=== PATIENT | female | born 1965 | race Caucasian/White ===

== ENCOUNTER 2016-12-20 11:15 | Observation (INO) | payer MEDICAID ==
[~2016-12-20] VITALS: Ht 144.8 cm; Wt 60.5 kg
[~2016-12-20 11:15] MED LIST: ACCUPRIL20TAB PO; ALBUTEROL SULFAT3 M3 IH; ALLEGRA30 MG; ARAVA 20MG TABL20 MG PO; ARAVA20 MG PO; ARTANE 2MG2 MG PO; BUSPAR5 MG PO; CELEBREX 200MG200 MG PO; CIPRO 250MG TA250 MG PO; CLEOCIN HCL300 MG PO; COGENTIN .0.5 MG/TAB PO; DOXYCYCLINE 10100 MG PO; ENBREL25 MG SC; ENBREL50 MG/ML SC; EXCEDRIN1 TAB; HUMALOG100 U/ML SC; HUMALOG100 U/ML SQ; LANTUS100 U/ML SC; LANTUS100 U/ML SQ; LOPRESSOR 225 MG/TAB PO; LORTAB 5/500 501 TAB PO; LUNESTA3 MG PO; MACROBID 1100 MG/CAP PO; NAVANE PO; NORCO 325 MG-51 TAB PO; PRILOSEC 20MG20 MG PO; PROBIOTIC FORMU1 CAP; RISPERDAL 1M1 MG/TAB PO; RT ADVAIR 228 DISKUS IH; SYNTHROID0.137 MG PO; TRICOR145 MG PO; TYLENOL 500MG500 MG PO; WELLBUTRIN XL300 M1 PO; ZOCOR 20MG20 MG PO; ZOFRAN ODT4 MG PO; [UNRECOGNIZED DRUG - CODE] PO; [UNRECOGNIZED DRUG - OTHER] PO
[2016-12-20 12:04] LABS: MEAN CELL VOLUME 81 fl (80.0-100.0); MEAN CORPUSCULAR HGB CONC 33 g/dl (33.0-37.0); MEAN PLATELET VOLUME 10.2 fl (7.4-10.4); PLATELET COUNT 256 K/mm3 (130-400); RED BLOOD COUNT 3.54 M/mm3 (4.10-5.30); REDCELL DISTRIBUTION WIDTH-CV 14.5 % (11.5-14.5); WHITE BLOOD COUNT 15.2 K/mm3 (4.8-10.8)
[2016-12-20 12:06] LABS: ADD PATHOLOGY DIFF REVIEW NO; HEMATOCRIT 28.7 % (37.0-47.0); HEMOGLOBIN 9.5 g/dl (12.5-16.0); MEAN CORPUSCULAR HEMOGLOBIN 27 pg (27.0-31.0)
[2016-12-20 12:15] LABS: ADJUSTED CALCIUM 10.2 mg/dL (8.4-10.2); ALANINE AMINOTRANSFERASE 36 U/L (9-52); ALBUMIN 3.5 gm/dL (3.5-5.0); ALKALINE PHOSPHATASE 95 U/L (50-136); ANION GAP 13 mmol/L (7-16); BILIRUBIN,TOTAL 2.1 mg/dL (0.0-1.0); BLOOD UREA NITROGEN 23 mg/dL (7-17); CALCIUM 9.8 mg/dL (8.4-10.2); CARBON DIOXIDE 23 mmol/L (22-30); CHLORIDE 95 mmol/L (98-107); CREATININE, serum 1.34 mg/dL (0.52-1.25); GLUCOSE 341 mg/dL (74-106); LIPASE 11 U/L (23-300); SODIUM 131 mmol/L (137-145); TOTAL PROTEIN 6.8 gm/dL (6.4-8.2)
[2016-12-20 12:25] LABS: BAND 9 % (0-10); NEUTROPHILS 54 % (42.0-75.2); PLATELET ESTIMATE NORMAL (NORMAL); TOTAL CELLS COUNTED 100
[2016-12-20 12:26] LABS: OVALOCYTES 1+
[2016-12-20 12:27] LABS: TROPONIN-I < 0.012 ng/mL (0.000-0.034)
[2016-12-20 13:21] LABS: ARTERIAL BLD GAS O2 SATURATION 95.9 % (92-100); ARTERIAL BLD GAS TCO2 CT 18.9; ARTERIAL BLOOD GAS BASE EXCESS -6.1 (-2-2); ARTERIAL BLOOD GAS HCO3 17.9 meq/L (22-26); ARTERIAL BLOOD GAS PHT 7.39 C (7.35-7.45); ARTERIAL BLOOD GAS pH 7.39 (7.35-7.45); ATS? YES; OXYHEMOGLOBIN 94.2 %
[2016-12-20] MEDS ORDERED: COGENTIN .0.5 MG/TAB PO (15:15)
[2016-12-20] MEDS ORDERED: ACCUPRIL20TAB PO (15:16)
[2016-12-20] MEDS ORDERED: ENBREL25 MG SC (15:16)
[2016-12-20] MEDS ORDERED: TYLENOL 500MG500 MG PO (15:17)
[2016-12-20] MEDS ORDERED: WELLBUTRIN SR150 M1 PO (15:17)
[2016-12-20] MEDS ORDERED: LUNESTA3 MG PO (15:18)
[2016-12-20] MEDS ORDERED: TRICOR145 MG PO (15:18)
[2016-12-20] MEDS ORDERED: CELEBREX 200MG200 MG PO (15:18)
[2016-12-20] MEDS ORDERED: HUMALOG100 U/ML SQ (15:19)
[2016-12-20] MEDS ORDERED: ARAVA 20MG TABL20 MG PO (15:20)
[2016-12-20] MEDS ORDERED: LANTUS100 U/ML SQ (15:20)
[2016-12-20] MEDS ORDERED: LOPRESSOR 225 MG/TAB PO (15:21)
[2016-12-20] MEDS ORDERED: SYNTHROID0.137 MG PO (15:21)
[2016-12-20] MEDS ORDERED: ZOCOR 20MG20 MG PO (15:22)
[2016-12-20] MEDS ORDERED: PRILOSEC 20MG20 MG PO (15:22)
[2016-12-20] MEDS ORDERED: RISPERDAL 1M1 MG/TAB PO (15:22)
[2016-12-20 16:56] LABS: PH 5 (5-8); SQUAMOUS EPITHELIAL 0-2 /hpf; URINE APPEARANCE Hazy; URINE BACTERIA Rare /hpf; URINE BILIRUBIN Negative (NEGATIVE); URINE BLOOD 2+ (NEGATIVE); URINE COLOR Yellow; URINE GLUCOSE 3+ (NEGATIVE); URINE KETONE 1+ (NEGATIVE); URINE UROBILINOGEN Negative (NEGATIVE); URINE WBC 20-50 /hpf
[2016-12-20 17:59] VITALS: BP 150/49; PULSE 110; TEMP 99.1
[2016-12-20 20:53] VITALS: BP 150/51; PULSE 108; TEMP 99.1
[2016-12-20 23:46] VITALS: BP 1150/55; BP 150/55; PULSE 119; TEMP 98.9
[2016-12-21] VITALS (8 sets, daily range): BP systolic 112–167; BP diastolic 46–64; PULSE 77–120; TEMP 97.1–99.1
[2016-12-21 21:11] LABS: MEAN CELL VOLUME 84 fl (80.0-100.0); MEAN CORPUSCULAR HGB CONC 32 g/dl (33.0-37.0); MEAN PLATELET VOLUME 9.8 fl (7.4-10.4); PLATELET COUNT 225 K/mm3 (130-400); RED BLOOD COUNT 3.19 M/mm3 (4.10-5.30); WHITE BLOOD COUNT 8.5 K/mm3 (4.8-10.8)
[2016-12-21 21:13] LABS: HEMATOCRIT 26.7 % (37.0-47.0); HEMOGLOBIN 8.5 g/dl (12.5-16.0); MEAN CORPUSCULAR HEMOGLOBIN 27 pg (27.0-31.0)
[2016-12-21 21:22] LABS: ADJUSTED CALCIUM 10.1 mg/dL (8.4-10.2); ALBUMIN 2.9 gm/dL (3.5-5.0); CALCIUM 9.2 mg/dL (8.4-10.2); CREATININE, serum 0.7 mg/dL (0.52-1.25); POTASSIUM 4.2 mmol/L (3.4-5.0); TOTAL PROTEIN 6.2 gm/dL (6.4-8.2)
[2016-12-22 04:00] VITALS: BP 153/62; PULSE 88; TEMP 98.3
[2016-12-22 07:33] LABS: MEAN CELL VOLUME 83 fl (80.0-100.0); MEAN CORPUSCULAR HGB CONC 32 g/dl (33.0-37.0); MEAN PLATELET VOLUME 10.3 fl (7.4-10.4); PLATELET COUNT 273 K/mm3 (130-400); RED BLOOD COUNT 3.29 M/mm3 (4.10-5.30); REDCELL DISTRIBUTION WIDTH-CV 14.8 % (11.5-14.5); WHITE BLOOD COUNT 6.5 K/mm3 (4.8-10.8)
[2016-12-22 07:37] VITALS: BP 166/66; PULSE 87; TEMP 98.2
[2016-12-22 07:40] LABS: HEMATOCRIT 27.3 % (37.0-47.0); HEMOGLOBIN 8.6 g/dl (12.5-16.0); MEAN CORPUSCULAR HEMOGLOBIN 26 pg (27.0-31.0)
[2016-12-22 07:43] LABS: CALCIUM 9.4 mg/dL (8.4-10.2); CREATININE, serum 0.67 mg/dL (0.52-1.25); POTASSIUM 4.2 mmol/L (3.4-5.0)
[2016-12-22 12:21] VITALS: BP 177/74; PULSE 89; TEMP 97.5
[2016-12-22] MEDS ORDERED: LEVAQUIN 750MG750 M1 PO (13:55)
[2016-12-22] MEDS ORDERED: ZOFRAN ODT4 MG PO (14:23)
== END 2016-12-22 14:52 | disposition home or self-care (01) ==
LOC: COL.ER 11:15 → MEDICAL 14:52
PROVIDERS: Emergency Medicine; Internal Medicine Cardiovascular Disease
DX: R11.2 Nausea with vomiting, unspecified (principal); M06.9 Rheumatoid arthritis, unspecified; E10.9 Type 1 diabetes mellitus without complications; Z79.4 Long term (current) use of insulin; I10 Essential (primary) hypertension; F29 Unspecified psychosis not due to a substance or known physiological condition; I95.9 Hypotension, unspecified
CPT/HCPCS: 99222-AI; 99223-AI; 99233-AI; G0378; J1815; J1956; J2270; J2405; J2550; J7030; J7509; Q9967

== ENCOUNTER → 2018-01-13 | Outpatient (CLI) | payer MEDICAID ==
[~2018-01-13] MED LIST changes: +LEVAQUIN 750MG750 M1 PO; +WELLBUTRIN SR150 M1 PO
== END ==
LOC: COL.RAD 08:15
DX: R29.818 Other symptoms and signs involving the nervous system (principal); R41.89 Other symptoms and signs involving cognitive functions and awareness
CPT/HCPCS: A9585

== ENCOUNTER 2019-04-07 12:00 | Emergency (ER) | payer MEDICAID ==
[~2019-04-07] VITALS: Ht 144.8 cm; Wt 54.5 kg
[2019-04-07 12:04] VITALS: TEMP 97
[2019-04-07 12:47] LABS: BASO # 0.1 (0.0-0.2); EOS # 0.2 (0.0-0.7); EOS % 2.4 % (0-4.0); GRAN # 5.4 (1.4-6.5); GRAN % 68.9 % (42.2-75.2); HEMOGLOBIN 10.7 g/dl (12.5-16.0); LYMPH # 1.5 (1.2-3.4); LYMPH % 19.4 % (20.0-51.0); MEAN CELL VOLUME 83 fl (80.0-100.0); MEAN CORPUSCULAR HEMOGLOBIN 27 pg (27.0-31.0); MEAN CORPUSCULAR HGB CONC 33 g/dl (33.0-37.0); MEAN PLATELET VOLUME 9.7 fl (7.4-10.4); MONO # 0.6 (0.1-0.6); PLATELET COUNT 277 K/mm3 (130-400); RED BLOOD COUNT 3.91 M/mm3 (4.10-5.30); REDCELL DISTRIBUTION WIDTH-CV 14.6 % (11.5-14.5)
[2019-04-07 12:54] LABS: HEMATOCRIT 32.3 % (37.0-47.0)
[2019-04-07 13:00] LABS: ALBUMIN 3.8 gm/dL (3.5-5.0); BILIRUBIN,TOTAL 0.4 mg/dL (0.0-1.0); CALCIUM 9.6 mg/dL (8.4-10.2); CREATININE, serum 0.9 (0.52-1.25); POTASSIUM 4.5 mmol/L (3.4-5.0); TOTAL PROTEIN 7.3 gm/dL (6.4-8.2)
[2019-04-07] MEDS ORDERED: ZOFRAN ODT4 MG PO (14:28)
[2019-04-07 14:47] LABS: COLLECTION METHOD CLEAN CATCH
[2019-04-07 14:58] LABS: MUCOUS Present /lpf; PH 5 (5-8); SQUAMOUS EPITHELIAL None Seen /hpf; URINE APPEARANCE Clear; URINE BACTERIA Rare /hpf; URINE BILIRUBIN Negative (NEGATIVE); URINE BLOOD Negative (NEGATIVE); URINE COLOR Yellow; URINE GLUCOSE 3+ (NEGATIVE); URINE KETONE Negative (NEGATIVE); URINE LEUKOCYTE ESTERASE Negative (NEGATIVE); URINE NITRATE Positive (NEGATIVE); URINE PROTEIN(semi-quant) Negative (NEGATIVE); URINE RBC 0-2 /hpf; URINE UROBILINOGEN Negative (NEGATIVE)
[2019-04-07 15:11] VITALS: BP 142/77; PULSE 76
== END 2019-04-07 15:13 | disposition home or self-care (01) ==
LOC: COL.ER 12:00
PROVIDERS: Physician Assistant
DX: E10.65 Type 1 diabetes mellitus with hyperglycemia (principal); K80.20 Calculus of gallbladder without cholecystitis without obstruction; E03.9 Hypothyroidism, unspecified; I10 Essential (primary) hypertension
CPT/HCPCS: J2405; J7030

== ENCOUNTER 2020-03-04 22:07 | Emergency (ER) | payer MEDICAID ==
[~2020-03-04] VITALS: Ht 144.8 cm; Wt 59.1 kg
[~2020-03-04 22:07] MED LIST changes: +ALBUTEROL0.83 MG/ML IH; +BENADRYL25 M2 PO; +HUMIRA PEN40 MG/0.4 SQ; +NITROSTAT0.4 MG/TAB SL; +PROAIR HFA0.09 MG/AC IH; +PROTONIX 40MG T40 MG PO; +SYNTHROID0.125 MG/T PO; +TRESIBA100 UNIT/1 SQ
[2020-03-04 22:08] VITALS: TEMP 98.7
[2020-03-04 22:51] LABS: MEAN CELL VOLUME 84 fl (80.0-100.0); MEAN CORPUSCULAR HGB CONC 32 g/dl (33.0-37.0); MEAN PLATELET VOLUME 9.9 fl (7.4-10.4); PLATELET COUNT 250 K/mm3 (130-400); RED BLOOD COUNT 3.55 M/mm3 (4.10-5.30); REDCELL DISTRIBUTION WIDTH-CV 13.9 % (11.5-14.5)
[2020-03-04 22:55] LABS: HEMATOCRIT 29.9 % (37.0-47.0); HEMOGLOBIN 9.7 g/dl (12.5-16.0); MEAN CORPUSCULAR HEMOGLOBIN 27 pg (27.0-31.0)
[2020-03-04 23:05] LABS: ALANINE AMINOTRANSFERASE 10 U/L (4-34); ALBUMIN 3.8 gm/dL (3.5-5.0); ALKALINE PHOSPHATASE 109 U/L (50-136); ANION GAP 9 mmol/L (7-16); AST,SGOT 20 U/L (15-37); BILIRUBIN,TOTAL 0.8 mg/dL (0.0-1.0); BLOOD UREA NITROGEN 13 mg/dL (7-17); CALCIUM 9.2 mg/dL (8.4-10.2); CARBON DIOXIDE 24 mmol/L (22-30); CHLORIDE 98 mmol/L (98-107); CREATININE, serum 0.93 (0.52-1.25); GLUCOSE 235 mg/dL (74-106); LIPASE < 10 U/L (23-300); POTASSIUM 4.1 mmol/L (3.4-5.0); SODIUM 131 mmol/L (137-145)
[2020-03-04 23:12] LABS: ANISOCYTOSIS 2+; BAND 28 % (0-10); LYMPHOCYTE 15 % (20.0-51.0); NEUTROPHILS 53 % (42.0-75.2); PLATELET ESTIMATE NORMAL (NORMAL)
[2020-03-04 23:13] LABS: HYPOCHROMIA 1+; POIKILOCYTOSIS 1+
[2020-03-04 23:16] LABS: C-REACTIVE PROTEIN 26.4 mg/dL (0.0-0.9)
[2020-03-04 23:17] LABS: COLLECTION METHOD CATHETER
[2020-03-04 23:30] LABS: MUCOUS Present /lpf; PH 5 (5-8); SQUAMOUS EPITHELIAL 0-2 /hpf; URINE APPEARANCE Cloudy; URINE BACTERIA Rare /hpf; URINE BILIRUBIN Negative (NEGATIVE); URINE BLOOD 1+ (NEGATIVE); URINE COLOR Yellow; URINE GLUCOSE 3+ (NEGATIVE); URINE KETONE Negative (NEGATIVE); URINE LEUKOCYTE ESTERASE 3+ (NEGATIVE); URINE NITRATE Positive (NEGATIVE); URINE PROTEIN(semi-quant) 2+ (NEGATIVE); URINE UROBILINOGEN Negative (NEGATIVE)
[2020-03-04] MEDS ORDERED: OMNICEF 300MG300 MG PO (23:45)
[2020-03-04] MEDS ORDERED: ZOFRAN ODT4 MG PO (23:45)
[2020-03-05 00:20] VITALS: BP 128/54; PULSE 93
== END 2020-03-05 00:20 | disposition home or self-care (01) ==
LOC: COL.ER 22:07
PROVIDERS: Emergency Medicine
DX: N12 Tubulo-interstitial nephritis, not specified as acute or chronic (principal); R11.2 Nausea with vomiting, unspecified; R51 Headache; I10 Essential (primary) hypertension; E78.5 Hyperlipidemia, unspecified; E10.9 Type 1 diabetes mellitus without complications; F25.9 Schizoaffective disorder, unspecified; Z79.51 Long term (current) use of inhaled steroids; Z79.890 Hormone replacement therapy
CPT/HCPCS: J0696; J1885; J2405; J7040

== ENCOUNTER 2020-08-16 11:11 | Inpatient (IN) | payer MEDICAID ==
[~2020-08-16] VITALS: Ht 144.8 cm; Wt 65.1 kg
[~2020-08-16 11:11] MED LIST changes: +OMNICEF 300MG300 MG PO
[2020-08-16 12:04] LABS: HEMOGLOBIN 11.5 g/dl (12.5-16.0); MEAN CELL VOLUME 89 fl (80.0-100.0); MEAN CORPUSCULAR HEMOGLOBIN 30 pg (27.0-31.0); MEAN CORPUSCULAR HGB CONC 33 g/dl (33.0-37.0); MEAN PLATELET VOLUME 9.1 fl (7.4-10.4); PLATELET COUNT 370 K/mm3 (130-400); RED BLOOD COUNT 3.88 M/mm3 (4.10-5.30); REDCELL DISTRIBUTION WIDTH-CV 14.2 % (11.5-14.5)
[2020-08-16 12:08] LABS: HEMATOCRIT 34.7 % (37.0-47.0)
[2020-08-16 12:09] LABS: BILIRUBIN,TOTAL 0.5 mg/dL (0.0-1.0); C-REACTIVE PROTEIN 8.4 mg/dL (0.0-0.9); CALCIUM 9.6 mg/dL (8.4-10.2); CREATININE, serum 0.7 (0.52-1.25); POTASSIUM 5.3 mmol/L (3.4-5.0); TOTAL PROTEIN 7.1 gm/dL (6.4-8.2)
[2020-08-16 12:25] LABS: BAND 51 % (0-10); LYMPHOCYTE 12 % (20.0-51.0); PLATELET ESTIMATE NORMAL (NORMAL)
[2020-08-16 12:26] LABS: NEUTROPHILS 34 % (42.0-75.2)
[2020-08-16] MEDS ORDERED: ZYRTEC 10MG10 MG PO (14:04)
[2020-08-16] MEDS ORDERED: SINGULAIR 110 MG/TAB PO (14:06)
[2020-08-16] MEDS ORDERED: FLONASE NASAL S16 GM NS (14:07)
[2020-08-16] MEDS ORDERED: LIPITOR 40MG TA40 MG PO (14:09)
[2020-08-16] MEDS ORDERED: SYNTHROID 0.10.15 MG PO (15:06)
[2020-08-16] MEDS ORDERED: IMURAN 50MG TAB50 MG PO (15:06)
[2020-08-16] MEDS ORDERED: ISOPTIN SR180 M1 PO (15:06)
[2020-08-16] MEDS ORDERED: COZAAR 25MG25 MG/TAB PO (15:07)
[2020-08-16] MEDS ORDERED: 00186-0372-20 IH (15:18)
[2020-08-16] MEDS ORDERED: MACROBID 1100 MG/CAP PO (15:36)
--- NOTE | 2020-08-16 17:30 | NUR ---
Pt arrived to floor at this time from ER with ER nurse. transferred over to bed with assistance of 2. Resting on side d/t pain in L side that is 8/10. Denies other needs, will get meds and implement plan of care.
[2020-08-16 17:37] VITALS: BP 152/51; PULSE 93; TEMP 99.2
--- NOTE | 2020-08-16 18:39 | NUR ---
Pt continues to lay on R side d/t pain in L side, discussed need to start meds to help with getting stool out per doctors recommendations and need to minimize narcotic use as it will slow down bowels further. Pt agreeable and verbalizes understanding. IVF to RW. Will give bedside shift report to nightshift nurse who will resume care.
--- NOTE | 2020-08-16 20:11 | NUR ---
Patient resting in bed drinking her golytely. IV fluids infusing. Patient has complaints of pain on the left side of her abdomen, but states it is tolerable. Patient has not had a bowel movement yet. Instructed patient to call if she feels the urge to go to the bathroom.
[2020-08-16 21:01] VITALS: BP 181/70; PULSE 93; TEMP 98.1
--- NOTE | 2020-08-16 22:06 | NUR ---
Patient resting in bed. Still has not had a bowel movement. Encouraging patient to keep drinking the Golytely but patient is tired and falling asleep. Call light is within reach.
--- NOTE | 2020-08-16 22:24 | NUR ---
Patient's blood pressure was 181/70. Took it again and got about the same thing. Called hospitalist and got an order for lebatalol.
[2020-08-16 23:26] VITALS: BP 172/66; PULSE 85; TEMP 98.4
[2020-08-17 00:57] VITALS: BP 159/65
--- NOTE | 2020-08-17 02:09 | NUR ---
PAtient got up to use the bathroom and had a large bowel movement.
--- NOTE | 2020-08-17 03:30 | NUR ---
Patient had another bowel movement.
[2020-08-17 03:35] VITALS: BP 149/63; PULSE 93; TEMP 98.6
[2020-08-17 07:26] VITALS: BP 172/65; PULSE 84; TEMP 98.9
[2020-08-17 07:54] LABS: BASO # 0.1 (0.0-0.2); BASO % 0.4 % (0.0-2.0); EOS # 0.2 (0.0-0.7); EOS % 1.7 % (0-4.0); GRAN # 10.1 (1.4-6.5); GRAN % 83.2 % (42.2-75.2); LYMPH % 7.8 % (20.0-51.0); MEAN CELL VOLUME 89 fl (80.0-100.0); MEAN CORPUSCULAR HGB CONC 33 g/dl (33.0-37.0); MEAN PLATELET VOLUME 8.8 fl (7.4-10.4); MONO # 0.8 (0.1-0.6); MONO % 6.6 % (1.7-9.3); PLATELET COUNT 299 K/mm3 (130-400); RED BLOOD COUNT 3.42 M/mm3 (4.10-5.30); REDCELL DISTRIBUTION WIDTH-CV 14.5 % (11.5-14.5)
[2020-08-17 07:57] LABS: HEMATOCRIT 30.3 % (37.0-47.0); HEMOGLOBIN 9.9 g/dl (12.5-16.0); MEAN CORPUSCULAR HEMOGLOBIN 29 pg (27.0-31.0)
[2020-08-17 08:04] LABS: CALCIUM 8.8 mg/dL (8.4-10.2); CREATININE, serum 0.58 (0.52-1.25); POTASSIUM 4.8 mmol/L (3.4-5.0)
--- NOTE | 2020-08-17 09:45 | NUR ---
Patient alert and oriented, answers questions appropriately. Abdomen soft, non tender,non distended. Bowel sounds hyperactive x4 quads. +Flatus. +Bowel movement. No c/o at this time.
--- NOTE | 2020-08-17 11:14 | NUR ---
SW met with the patient to discuss discharge plan. The patient lives alone in [place]. Her son, Reuben (ph#[phone]), and mother, Ambreen (ph#[phone]), also live in [place]. She reports needing occasional assistance with ADLs and does not have any DME. She states that her son helps her with her ADLs, if needed. The patient's PCP is Dr. Edgardo Jacobs and she receives her medications from [facility] in [place]. She reports no difficulties obtaining her meds. The patient does not have a DPOA-HC, but she was interested in obtaining a form. SW provided. The patient states that she is not and that she has two children: Reuben and Rina. Rina lives in [place]. The patient plans to return home upon discharge. SW then contacted and reviewed the d/c plan with the patient's son, Reuben. Reuben reports that him and the patient's mother help the patient quite a bit. They cook her meals and clean the house and try and check in on the patient every day. He had no concerns about the patient returning home upon discharge. SW to follow as needed.
[2020-08-17 11:26] VITALS: BP 184/71; PULSE 101; TEMP 98.6
--- NOTE | 2020-08-17 13:34 | NUR ---
First visit from the parent educator. No needs right now.
--- NOTE | 2020-08-17 15:45 | NUR ---
Patient arrived to unit per PACU at 1525. Abdomen soft, non tender, non distended. Bowel sounds hypoactive x4 quads. Lap sites to abdomen with edges well approximated, no redness or drainage noted. CARMEN to LLQ with scant amount bloody drainage noted. Chahal catheter in place and draining clear yellow urine. ERAS protocol reviewed with patient, teaching included leg exercises, CDB and bedrest until tomorrow a.m, verbalized understanding.
--- NOTE | 2020-08-17 16:15 | NUR ---
Upon entering room, patient dressed in regular clothes. Reviewed with patient she is to remain on bedrest until morning, verbalized understanding.
[2020-08-17 16:16] VITALS: BP 137/55; PULSE 88; TEMP 98.2
[2020-08-17 21:12] VITALS: BP 136/63; PULSE 97; TEMP 98.5
--- NOTE | 2020-08-17 21:30 | NUR ---
Patient resting in bed. Complaints of some discomfort in her abdomen. Patient tolerating the bland diet. Held her mirilax and senekot due to her diarrhea throughout the day. Patient has no other needs at this time. Call light is in reach.
--- NOTE | 2020-08-18 00:30 | NUR ---
Patient refused her insulin stating she would not need it. Encouraged patient to take it and told her her blood sugar was 162, but she stated she did not think she needed it.
[2020-08-18 00:48] VITALS: BP 153/55; PULSE 85; TEMP 98.5
[2020-08-18 04:33] VITALS: BP 162/55; PULSE 93; TEMP 97.9
--- NOTE | 2020-08-18 05:14 | NUR ---
Patient's IV infiltrated. New IV in Left forearm started by housekeeping staff. Fluids running at 60 ml/hr.
[2020-08-18 07:05] VITALS: BP 161/44; PULSE 89; TEMP 98.5
[2020-08-18 07:10] LABS: BASO # 0.1 (0.0-0.2); BASO % 0.5 % (0.0-2.0); EOS # 0.3 (0.0-0.7); EOS % 2.9 % (0-4.0); GRAN # 7.6 (1.4-6.5); GRAN % 79.9 % (42.2-75.2); LYMPH # 0.9 (1.2-3.4); LYMPH % 9.4 % (20.0-51.0); MEAN CELL VOLUME 90 fl (80.0-100.0); MEAN CORPUSCULAR HGB CONC 33 g/dl (33.0-37.0); MEAN PLATELET VOLUME 9.5 fl (7.4-10.4); MONO # 0.7 (0.1-0.6); MONO % 7.1 % (1.7-9.3); PLATELET COUNT 295 K/mm3 (130-400); RED BLOOD COUNT 3.29 M/mm3 (4.10-5.30); REDCELL DISTRIBUTION WIDTH-CV 14.3 % (11.5-14.5)
[2020-08-18 07:20] LABS: HEMATOCRIT 29.5 % (37.0-47.0); HEMOGLOBIN 9.7 g/dl (12.5-16.0); MEAN CORPUSCULAR HEMOGLOBIN 29 pg (27.0-31.0)
[2020-08-18 07:28] LABS: CALCIUM 8.9 mg/dL (8.4-10.2); CREATININE, serum 0.6 (0.52-1.25); POTASSIUM 4.3 mmol/L (3.4-5.0)
[2020-08-18] MEDS ORDERED: MACROBID 1100 MG/CAP PO ×2 (09:45)
[2020-08-18] MEDS ORDERED: MIRALAX238G PO (09:46)
[2020-08-18] MEDS ORDERED: FLAGYL500 MG PO (09:47)
[2020-08-18] MEDS ORDERED: CIPRO 500MG TA500 MG PO (09:47)
--- NOTE | 2020-08-18 11:27 | NUR ---
Patient alert and oriented, answers questions appropriately. See assessment. Abdomen soft, non tender, non distended. Bowel sounds active x4 quads. +Flatus. +Bowel movement. No c/o at this time.
--- NOTE | 2020-08-18 16:34 | NUR ---
Discharge instructions reviewed with patient, verbalized understanding. Discharged via wheelchair to auto/home with family at 1615.
== END 2020-08-18 16:15 | disposition home or self-care (01) | DRG 389 ==
LOC: COL.ER 11:11 → SURG 14:00
PROVIDERS: Emergency Medicine; Physician Assistant; ADMIT Internal Medicine
DX: K56.600 Partial intestinal obstruction, unspecified as to cause (principal); E87.1 Hypo-osmolality and hyponatremia; E87.6 Hypokalemia; K52.9 Noninfective gastroenteritis and colitis, unspecified; K59.00 Constipation, unspecified; E78.5 Hyperlipidemia, unspecified; M06.9 Rheumatoid arthritis, unspecified; E03.9 Hypothyroidism, unspecified; E11.9 Type 2 diabetes mellitus without complications; K80.20 Calculus of gallbladder without cholecystitis without obstruction; E87.5 Hyperkalemia; J45.909 Unspecified asthma, uncomplicated; F25.1 Schizoaffective disorder, depressive type; K21.9 Gastro-esophageal reflux disease without esophagitis; Z79.4 Long term (current) use of insulin
CPT/HCPCS: 99223-AI; 99232-AI; 99239; J0744; J1650; J1815; J2212; J2270; J2405; J7030; J7500

== ENCOUNTER 2020-09-30 12:16 | Emergency (ER) | payer MEDICAID ==
[~2020-09-30] VITALS: Ht 147.3 cm; Wt 50.0 kg
[~2020-09-30 12:16] MED LIST changes: +00186-0372-20 IH; +CIPRO 500MG TA500 MG PO; +COZAAR 25MG25 MG/TAB PO; +FLAGYL500 MG PO; +FLONASE NASAL S16 GM NS; +IMURAN 50MG TAB50 MG PO; +ISOPTIN SR180 M1 PO; +LIPITOR 40MG TA40 MG PO; +MIRALAX238G PO; +SINGULAIR 110 MG/TAB PO; +SYNTHROID 0.10.15 MG PO; +ZYRTEC 10MG10 MG PO
[2020-09-30 12:27] VITALS: TEMP 97.4
[2020-09-30] MEDS ORDERED: TRESIBA FL100 UNIT/1 SQ (12:38)
[2020-09-30 13:00] LABS: BASO % 0.3 % (0.0-2.0); EOS # 0.1 (0.0-0.7); EOS % 1.2 % (0-4.0); GRAN # 8.5 (1.4-6.5); GRAN % 74.4 % (42.2-75.2); HEMOGLOBIN 12.3 g/dl (12.5-16.0); LYMPH # 1.8 (1.2-3.4); LYMPH % 15.4 % (20.0-51.0); MEAN CELL VOLUME 86 fl (80.0-100.0); MEAN CORPUSCULAR HEMOGLOBIN 30 pg (27.0-31.0); MEAN CORPUSCULAR HGB CONC 35 g/dl (33.0-37.0); MEAN PLATELET VOLUME 8.5 fl (7.4-10.4); MONO # 0.9 (0.1-0.6); MONO % 8.2 % (1.7-9.3); PLATELET COUNT 355 K/mm3 (130-400); RED BLOOD COUNT 4.14 M/mm3 (4.10-5.30); REDCELL DISTRIBUTION WIDTH-CV 13.1 % (11.5-14.5)
[2020-09-30 13:07] LABS: HEMATOCRIT 35.7 % (37.0-47.0)
[2020-09-30 13:08] LABS: COLLECTION METHOD CLEAN CATCH
[2020-09-30 13:09] LABS: ALBUMIN 4.4 gm/dL (3.5-5.0); BILIRUBIN,TOTAL 0.3 mg/dL (0.0-1.0); C-REACTIVE PROTEIN 0.9 mg/dL (0.0-0.9); CALCIUM 9.8 mg/dL (8.4-10.2); CREATININE, serum 0.71 (0.52-1.25); POTASSIUM 4.3 mmol/L (3.4-5.0); TOTAL PROTEIN 7.4 gm/dL (6.4-8.2)
[2020-09-30 13:21] LABS: PH 5 (5-8); SQUAMOUS EPITHELIAL None Seen /hpf; URINE APPEARANCE Clear; URINE BACTERIA Rare /hpf; URINE BILIRUBIN Negative (NEGATIVE); URINE BLOOD Negative (NEGATIVE); URINE COLOR Straw; URINE GLUCOSE Negative (NEGATIVE); URINE KETONE Negative (NEGATIVE); URINE LEUKOCYTE ESTERASE Negative (NEGATIVE); URINE NITRATE Negative (NEGATIVE); URINE PROTEIN(semi-quant) Negative (NEGATIVE); URINE RBC 0-2 /hpf; URINE UROBILINOGEN Negative (NEGATIVE)
[2020-09-30 16:02] VITALS: BP 140/56; PULSE 79
== END 2020-09-30 16:00 | disposition home or self-care (01) ==
LOC: COL.ER 12:16
PROVIDERS: Nurse Practitioner
DX: E11.649 Type 2 diabetes mellitus with hypoglycemia without coma (principal); F32.9 Major depressive disorder, single episode, unspecified; Z79.4 Long term (current) use of insulin; Z88.2 Allergy status to sulfonamides; Z88.6 Allergy status to analgesic agent; Z88.0 Allergy status to penicillin; Z88.1 Allergy status to other antibiotic agents; Z88.8 Allergy status to other drugs, medicaments and biological substances; Z79.51 Long term (current) use of inhaled steroids
CPT/HCPCS: J2405; J7030

== ENCOUNTER 2020-10-13 09:50 | Emergency (ER) | payer MEDICAID ==
[~2020-10-13] VITALS: Ht 147.3 cm; Wt 56.8 kg
[~2020-10-13 09:50] MED LIST changes: +TRESIBA FL100 UNIT/1 SQ
[2020-10-13 12:03] VITALS: BP 150/82; PULSE 93; TEMP 97.8
== END 2020-10-13 12:03 | disposition home or self-care (01) ==
LOC: COL.ER 09:50
DX: S60.051A Contusion of right little finger without damage to nail, initial encounter (principal); S09.90XA Unspecified injury of head, initial encounter; M54.2 Cervicalgia; Z88.0 Allergy status to penicillin; Z88.1 Allergy status to other antibiotic agents; Z88.2 Allergy status to sulfonamides; Z88.5 Allergy status to narcotic agent; Z88.8 Allergy status to other drugs, medicaments and biological substances; Z91.040 Latex allergy status; Z91.041 Radiographic dye allergy status; Z79.4 Long term (current) use of insulin; Z79.51 Long term (current) use of inhaled steroids; Z79.890 Hormone replacement therapy; W01.10XA Fall on same level from slipping, tripping and stumbling with subsequent striking against unspecified object, initial encounter; Y92.192 Bathroom in other specified residential institution as the place of occurrence of the external cause

== ENCOUNTER → 2020-12-11 | Outpatient (CLI) | payer MEDICAID ==
[~2020-12-11] MED LIST changes: +AL-MAG HYDROX-S30 ML PO; +BACITRACIN TOPIC1 TU TOP; +BD POSIFLUSH SF10 ML IV; +CEPHALEXIN500 M1 PO; +CILOXAN 5 ML5 ML OP; +COLACE 100100 MG/CAP PO; +ELIQUIS 5MG PO; +LEVEMIR100 U/ML SQ; +MELATIN 3 MG-11 TAB PO; +MONODOX100 PO; +NOVLOG SQ; +NOVOLOG 100U100 U/M1 SQ; +SENNA-LAX8.6 MG PO; +ZOVIRAX INJ V1000 MG IV
== END ==
LOC: MC.RAD 08:00
DX: N64.89 Other specified disorders of breast (principal)

== ENCOUNTER 2021-01-25 13:27 | Emergency (ER) | payer MEDICAID ==
[~2021-01-25] VITALS: Ht 147.3 cm; Wt 81.4 kg
[~2021-01-25 13:27] MED LIST changes: -AL-MAG HYDROX-S30 ML PO; -BACITRACIN TOPIC1 TU TOP; -BD POSIFLUSH SF10 ML IV; -CEPHALEXIN500 M1 PO; -CILOXAN 5 ML5 ML OP; -COLACE 100100 MG/CAP PO; -ELIQUIS 5MG PO; -LEVEMIR100 U/ML SQ; -MELATIN 3 MG-11 TAB PO; -MONODOX100 PO; -NOVLOG SQ; -NOVOLOG 100U100 U/M1 SQ; -SENNA-LAX8.6 MG PO; -ZOVIRAX INJ V1000 MG IV
[2021-01-25 14:29] LABS: BASO % 0.4 % (0.0-2.0); EOS % 0.4 % (0-4.0); GRAN # 7.1 (1.4-6.5); GRAN % 83.3 % (42.2-75.2); LYMPH # 0.4 (1.2-3.4); LYMPH % 5.1 % (20.0-51.0); MEAN CELL VOLUME 87 fl (80.0-100.0); MEAN CORPUSCULAR HEMOGLOBIN 29 pg (27.0-31.0); MEAN CORPUSCULAR HGB CONC 34 g/dl (33.0-37.0); MEAN PLATELET VOLUME 8.8 fl (7.4-10.4); MONO # 0.9 (0.1-0.6); MONO % 10.6 % (1.7-9.3); PLATELET COUNT 260 K/mm3 (130-400); RED BLOOD COUNT 4.11 M/mm3 (4.10-5.30); REDCELL DISTRIBUTION WIDTH-CV 12.5 % (11.5-14.5)
[2021-01-25 14:30] LABS: HEMATOCRIT 35.8 % (37.0-47.0)
[2021-01-25 14:40] LABS: PROTHROMBIN TIME 11.1 SECONDS (9.7-12.8)
[2021-01-25 14:47] LABS: C-REACTIVE PROTEIN 2.8 mg/dL (0.0-0.9); LIPASE 21 U/L (23-300)
[2021-01-25 15:02] LABS: COLLECTION METHOD CATHETER
[2021-01-25 15:06] LABS: ALANINE AMINOTRANSFERASE 26 U/L (4-34); ALBUMIN 4.6 gm/dL (3.5-5.0); ALKALINE PHOSPHATASE 113 U/L (50-136); ANION GAP 7 mmol/L (7-16); AST,SGOT 27 U/L (15-37); BILIRUBIN,TOTAL 0.6 mg/dL (0.0-1.0); BLOOD UREA NITROGEN 14 mg/dL (7-17); CALCIUM 10.1 mg/dL (8.4-10.2); CARBON DIOXIDE 28 mmol/L (22-30); CHLORIDE 93 mmol/L (98-107); CREATININE, serum 0.71 (0.52-1.25); GLUCOSE 209 mg/dL (74-106); POTASSIUM 4.7 mmol/L (3.4-5.0); SODIUM 128 mmol/L (137-145)
[2021-01-25 15:18] LABS: PH 7 (5-8); SQUAMOUS EPITHELIAL None Seen /hpf; URINE APPEARANCE Clear; URINE BACTERIA None Seen /hpf; URINE BILIRUBIN Negative (NEGATIVE); URINE BLOOD 1+ (NEGATIVE); URINE COLOR Yellow; URINE GLUCOSE 1+ (NEGATIVE); URINE KETONE Negative (NEGATIVE); URINE LEUKOCYTE ESTERASE Negative (NEGATIVE); URINE NITRATE Negative (NEGATIVE); URINE PROTEIN(semi-quant) 1+ (NEGATIVE); URINE UROBILINOGEN Negative (NEGATIVE)
[2021-01-25 15:18] LABS: TROPONIN-I < 0.012 ng/mL (0.000-0.035)
[2021-01-25 17:55] LABS: GLUCOSE,CSF 94 mg/dL (40-70)
[2021-01-25 20:14] LABS: CSF APPEARANCE CLEAR; CSF COLOR COLORLESS; CSF MONONUCLEAR 100 % (70-100); CSF POLYMORPHONUCLEAR 0 % (0-6); CSF RBC 0 /mm3 (0-0)
[2021-01-25 20:59] VITALS: BP 171/79; PULSE 116; TEMP 101.1
--- NOTE | 2021-01-29 11:26 | NUR ---
This RN faxed varicella zoster virus results to ADOLPH Summers in the infection control department at [facility] at this time. Fax results as sent.
[2021-01-29 11:38] LABS: HSV 2 DNA PCR QUAL Not Detected (())
== END 2021-01-25 21:00 | disposition short-term general hospital (02) ==
LOC: COL.ER 13:27
PROVIDERS: Emergency Medicine; Nurse Practitioner
DX: B02.0 Zoster encephalitis (principal); N39.0 Urinary tract infection, site not specified; E11.9 Type 2 diabetes mellitus without complications; F03.90 Unspecified dementia, unspecified severity, without behavioral disturbance, psychotic disturbance, mood disturbance, and anxiety; F32.9 Major depressive disorder, single episode, unspecified; I10 Essential (primary) hypertension; E78.5 Hyperlipidemia, unspecified; E03.9 Hypothyroidism, unspecified; J45.909 Unspecified asthma, uncomplicated; Z20.822 Contact with and (suspected) exposure to COVID-19; Z88.0 Allergy status to penicillin; Z88.1 Allergy status to other antibiotic agents; Z79.4 Long term (current) use of insulin; Z79.899 Other long term (current) drug therapy; Z79.51 Long term (current) use of inhaled steroids; Z79.890 Hormone replacement therapy
CPT/HCPCS: J0133; J0290; J0696; J1200; J2405; J2930; J3010; J3370; J7030; J7040; J7050

== ENCOUNTER 2021-02-02 | Emergency (ER) | payer MEDICAID ==
[~2021-02-02] VITALS: Ht 144.8 cm; Wt 62.7 kg
[2021-02-02 02:31] LABS: COLLECTION METHOD CATHETER
[2021-02-02 02:39] LABS: PH 6 (5-8); SQUAMOUS EPITHELIAL None Seen /hpf; URINE APPEARANCE Clear; URINE BACTERIA None Seen /hpf; URINE BILIRUBIN Negative (NEGATIVE); URINE BLOOD Negative (NEGATIVE); URINE COLOR Straw; URINE GLUCOSE 2+ (NEGATIVE); URINE KETONE Negative (NEGATIVE); URINE LEUKOCYTE ESTERASE Negative (NEGATIVE); URINE NITRATE Negative (NEGATIVE); URINE PROTEIN(semi-quant) Negative (NEGATIVE); URINE RBC 0-2 /hpf; URINE UROBILINOGEN Negative (NEGATIVE); URINE WBC 0-2 /hpf
[2021-02-02 02:47] LABS: ALBUMIN 3.5 gm/dL (3.5-5.0); BILIRUBIN,TOTAL 0.4 mg/dL (0.0-1.0); CREATININE, serum 0.68 (0.52-1.25); POTASSIUM 4.1 mmol/L (3.4-5.0); TOTAL PROTEIN 6.8 gm/dL (6.4-8.2)
[2021-02-02 02:54] LABS: BASO % 0.6 % (0.0-2.0); EOS # 0.3 (0.0-0.7); EOS % 4.2 % (0-4.0); GRAN # 4.3 (1.4-6.5); GRAN % 61.1 % (42.2-75.2); LYMPH # 1.6 (1.2-3.4); LYMPH % 22.7 % (20.0-51.0); MEAN CELL VOLUME 89 fl (80.0-100.0); MEAN CORPUSCULAR HGB CONC 33 g/dl (33.0-37.0); MEAN PLATELET VOLUME 8.7 fl (7.4-10.4); MONO # 0.8 (0.1-0.6); MONO % 11.1 % (1.7-9.3); PLATELET COUNT 335 K/mm3 (130-400); RED BLOOD COUNT 3.06 M/mm3 (4.10-5.30); REDCELL DISTRIBUTION WIDTH-CV 12.7 % (11.5-14.5)
[2021-02-02 02:57] LABS: HEMATOCRIT 27.1 % (37.0-47.0); HEMOGLOBIN 8.9 g/dl (12.5-16.0); MEAN CORPUSCULAR HEMOGLOBIN 29 pg (27.0-31.0)
[2021-02-02] MEDS ORDERED: SENNA-LAX8.6 MG PO (05:03)
[2021-02-02] MEDS ORDERED: COLACE 100100 MG/CAP PO (05:03)
[2021-02-02] MEDS ORDERED: ZOFRAN ODT4 MG PO (05:03)
[2021-02-02] MEDS ORDERED: CEPHALEXIN500 M1 PO (05:03)
[2021-02-02 05:40] VITALS: BP 188/78; TEMP 98.9
[2021-02-02 06:45] VITALS: PULSE 99
--- NOTE | 2021-02-02 09:52 | NUR ---
ironworker machine operator was contacted by Kerrie social service agency director at Dr Maday Martinez's office (primary care provider). Kerrie met with patient and family in their parking lot this morning after patient's emergency room visit. Patient and family want to be referred to rehab. Patient is not a good candidate for a group home facility due to young age and [facility] insurance. Worker gave a referral to [facility] and Kerrie will refer to [facility] in [place].
== END 2021-02-02 06:45 | disposition home or self-care (01) ==
LOC: COL.ER
PROVIDERS: Emergency Medicine
DX: R14.0 Abdominal distension (gaseous) (principal); K59.00 Constipation, unspecified; R60.0 Localized edema; R05 Cough; I80.8 Phlebitis and thrombophlebitis of other sites; J44.9 Chronic obstructive pulmonary disease, unspecified; Z88.6 Allergy status to analgesic agent; Z88.1 Allergy status to other antibiotic agents; Z79.51 Long term (current) use of inhaled steroids; Z88.2 Allergy status to sulfonamides
CPT/HCPCS: J1200; J2930; Q9967

== ENCOUNTER 2021-02-02 16:40 | Inpatient (IN) | payer MEDICAID ==
[~2021-02-02] VITALS: Ht 144.8 cm; Wt 63.3 kg
[~2021-02-02 16:40] MED LIST changes: +CEPHALEXIN500 M1 PO; +COLACE 100100 MG/CAP PO; +SENNA-LAX8.6 MG PO
[2021-02-02 17:42] VITALS: BP 169/76; PULSE 102; TEMP 98.6
[2021-02-02 21:32] VITALS: BP 150/45; PULSE 105; TEMP 97.8
[2021-02-02 23:32] VITALS: BP 149/60; PULSE 95; TEMP 98.6
--- NOTE | 2021-02-03 06:00 | NUR ---
PT SLEPT MAJORITY OF THE NIGHT,PT DRIED AND CHANGED, PT REFUSED 0400 VITALS AND 2100 HEPARIN. PT CONTINUES TO DENY PAIN, N/V/D. PT REMAINED AFEBRILE OVER NIGHT. PT EXPRESSES NO ADDITIONAL NEEDS AT THIS TIME. CALL LIGHT WITHIN REACH.
[2021-02-03 06:51] LABS: BASO % 0.2 % (0.0-2.0); EOS % 0.3 % (0-4.0); GRAN # 6.9 (1.4-6.5); GRAN % 70.9 % (42.2-75.2); LYMPH # 1.7 (1.2-3.4); LYMPH % 17.5 % (20.0-51.0); MEAN CELL VOLUME 87 fl (80.0-100.0); MEAN CORPUSCULAR HGB CONC 34 g/dl (33.0-37.0); MONO % 10.7 % (1.7-9.3); PLATELET COUNT 371 K/mm3 (130-400); REDCELL DISTRIBUTION WIDTH-CV 12.7 % (11.5-14.5)
[2021-02-03 06:58] LABS: HEMATOCRIT 25.3 % (37.0-47.0); HEMOGLOBIN 8.5 g/dl (12.5-16.0); MEAN CORPUSCULAR HEMOGLOBIN 29 pg (27.0-31.0)
[2021-02-03 07:13] LABS: CALCIUM 8.9 mg/dL (8.4-10.2); CREATININE, serum 0.85 (0.52-1.25); POTASSIUM 4.4 mmol/L (3.4-5.0)
[2021-02-03 08:06] VITALS: BP 157/57; PULSE 91; TEMP 99
--- NOTE | 2021-02-03 09:45 | NUR ---
PER PROVIDER, OK GIVEN TO USE PICC LINE IN LEFT UPPER ARM.
--- NOTE | 2021-02-03 10:05 | NUR ---
Discharge Plan : Home with Son. Sw met with the pt who stated her preference to return home once medically stable. The pt lives at home with her son, Reuben (ph# [phone]). Person to call to update is Ambreen Og (ph#[phone]). Pt is independent on ADLs and has a Glucometer. Pt PCP is Juan Sierra and she uses [facility] pharmacy in [place], [place]. Pt sometimes struggles to pay for medications. Pt has used HH services in the past, and if needed she would like to use them again. Pt does not recall the name of the company. Pt does not have DPOA- HC and was offered the paperwork. Pt informed Sw that she would like to call her son first to make sure he is okay being her DPAO. Sw will attempt again tomorrow. No other concerns stated at this time. Sw to await further recommendations and follow up as needed.
[2021-02-03 12:00] VITALS: BP 145/43; PULSE 90; TEMP 98.5
[2021-02-03 16:04] VITALS: BP 130/46; PULSE 92; TEMP 98.4
[2021-02-03 20:48] VITALS: BP 141/89; PULSE 93; TEMP 98.7
[2021-02-03 23:42] VITALS: BP 140/84; PULSE 88; TEMP 98
[2021-02-03 23:45] VITALS: BP 147/55; PULSE 96; TEMP 98.6
[2021-02-04 03:37] VITALS: BP 141/54; PULSE 76; TEMP 98.5
--- NOTE | 2021-02-04 05:54 | NUR ---
PT SLEPT MAJORITY OF THE NIGHT,2ND BAG OF ANTIBIOTICS COMPLETED INFUSING AT APPROXIMATELY 0400 VIA PICC LINE, PT IS TOLERATING INFUSION WELL AND REPORTS GENERAL DISCOMFORT AROUND PICC. LEFT UPPER ARM WHERE PICC IS REMAINS MINIMALLY SWOLLEN, NOT REDDENED, NO DRAINAGE NOTED. PT ADMINISTERED INSULIN ORDERED. PT HAS SNACK AT BED SIDE, PT WAS ASSISTED WITH A SHOWER AND PERSONAL HYGIENE, DURING THAT TIME THIS NURSE REALIZED CHAFFING AND REDNESS NEAR PERINEAL FOLDS, BARRIER CREAM APPLIED. THIS NURSE WAS ABLE TO TALK TO PT'S SON VICKY AND UPDATE HIM ON HER POC. PT EXPRESSES NO ADDITIONAL NEEDS AT THIS TIME. CALL LIGHT WITHIN REACH.
[2021-02-04 08:08] VITALS: BP 140/48; PULSE 93; TEMP 98.3
[2021-02-04 08:44] LABS: BASO % 0.5 % (0.0-2.0); EOS # 0.2 (0.0-0.7); EOS % 2.5 % (0-4.0); GRAN % 65.1 % (42.2-75.2); LYMPH # 1.5 (1.2-3.4); LYMPH % 19.5 % (20.0-51.0); MEAN CELL VOLUME 87 fl (80.0-100.0); MEAN CORPUSCULAR HGB CONC 34 g/dl (33.0-37.0); MEAN PLATELET VOLUME 8.9 fl (7.4-10.4); MONO # 0.9 (0.1-0.6); PLATELET COUNT 356 K/mm3 (130-400); RED BLOOD COUNT 2.74 M/mm3 (4.10-5.30)
[2021-02-04 08:45] LABS: HEMATOCRIT 23.8 % (37.0-47.0); HEMOGLOBIN 8.1 g/dl (12.5-16.0); MEAN CORPUSCULAR HEMOGLOBIN 30 pg (27.0-31.0)
[2021-02-04 08:58] LABS: CALCIUM 8.5 mg/dL (8.4-10.2); CREATININE, serum 0.72 (0.52-1.25); POTASSIUM 3.9 mmol/L (3.4-5.0)
[2021-02-04 12:00] VITALS: BP 142/52; PULSE 92; TEMP 98.6
[2021-02-04 16:09] VITALS: BP 122/50; PULSE 90; TEMP 98.4
[2021-02-04 21:02] VITALS: BP 106/55; PULSE 94; TEMP 98.5
[2021-02-05] VITALS (7 sets, daily range): BP systolic 101–161; BP diastolic 41–61; PULSE 72–92; TEMP 98–99.2
[2021-02-05 06:00] LABS: BASO % 0.4 % (0.0-2.0); EOS # 0.2 (0.0-0.7); EOS % 2.5 % (0-4.0); GRAN # 4.6 (1.4-6.5); GRAN % 64.3 % (42.2-75.2); LYMPH # 1.6 (1.2-3.4); LYMPH % 21.7 % (20.0-51.0); MEAN CELL VOLUME 88 fl (80.0-100.0); MEAN CORPUSCULAR HGB CONC 34 g/dl (33.0-37.0); MEAN PLATELET VOLUME 8.8 fl (7.4-10.4); MONO # 0.8 (0.1-0.6); MONO % 10.8 % (1.7-9.3); PLATELET COUNT 361 K/mm3 (130-400); RED BLOOD COUNT 2.69 M/mm3 (4.10-5.30)
[2021-02-05 06:08] LABS: HEMATOCRIT 23.6 % (37.0-47.0); HEMOGLOBIN 7.9 g/dl (12.5-16.0); MEAN CORPUSCULAR HEMOGLOBIN 29 pg (27.0-31.0)
[2021-02-05 06:13] LABS: CALCIUM 8.8 mg/dL (8.4-10.2); CREATININE, serum 0.71 (0.52-1.25); POTASSIUM 3.6 mmol/L (3.4-5.0)
--- NOTE | 2021-02-05 06:15 | NUR ---
PT SLEPT MAJORITY OF THE NIGHT, PT REPORTS NOT HAVING A BOWEL MOVEMENT SINCE THE , MIRALAX ADMINISTERED ORDERED, INSLULIN ADMINSTERED ORDERED. PT DENIES PAIN, N/V/D. PT EXPRESSES NO ADDITIONAL NEEDS AT THIS TIME. CALL LIGHT WITHIN REACH.
--- NOTE | 2021-02-05 12:59 | NUR ---
While patient was ordering lunch, she began c/o dizziness and "not feeling well". Blood sugar was rechecked and it was 194. All vital signs are stable. Patient has some nausea as well and states this is normally how she feels when she has low blood sugar. She thinks she needs to eat and that will help. Patient was given SF jello and pudding.
--- NOTE | 2021-02-05 15:05 | NUR ---
Patient admitted with PICC in her left upper arm. dressing dated 01/29/21. Patient is unsure where and when it was placed. PICC intact left upper with sterile dressing change done. large amount of dried drainage noted on disk. insertion site cleansed with chloraprep x 1, chlorhexidine impregnated disk applied, skin prep, stat lock, and tegaderm applied. cap changed and flushed with 10ml normal saline with good blood return noted. patient's left arm is swollen and tight. reviewed patient's last history and physical note.
--- NOTE | 2021-02-05 16:57 | NUR ---
Transmission Superintendent collaborated with Fabienne, IPR Director who advised she has submitted for authorization from patient's insurance. SW met with patient and patient's mother, Ambreen (ph#[phone]) to provide update. Discharge Plan: IPR pending insurance authorization.
[2021-02-06 03:26] VITALS: BP 151/51; PULSE 87; TEMP 98.4
--- NOTE | 2021-02-06 06:08 | NUR ---
PT RESTED MOST OF THE NIGHT, VSS, 02 ROOM AIR. PT DENIES PAIN/N/V/D. PATIENT ADMINISTERED MIRALAX ORDERED TO HELP PASS BM. NO BM SINCE 02/03 REPORTED. PT ENCOURAGED TO AMBULATE WITH NURSE STANDING BY. THIS NURSE VU CLEANED AND CHANGED VENOUS ULCER BANDAID. INSULIN ADMINISTERED ORDERED. CALL LIGHT WITHIN REACH.
[2021-02-06 06:31] LABS: CALCIUM 8.8 mg/dL (8.4-10.2); CREATININE, serum 0.66 (0.52-1.25)
[2021-02-06 06:50] LABS: BASO % 0.4 % (0.0-2.0); EOS # 0.2 (0.0-0.7); EOS % 3.2 % (0-4.0); GRAN # 4.5 (1.4-6.5); GRAN % 64.1 % (42.2-75.2); LYMPH # 1.6 (1.2-3.4); LYMPH % 23.2 % (20.0-51.0); MEAN CELL VOLUME 88 fl (80.0-100.0); MEAN CORPUSCULAR HGB CONC 34 g/dl (33.0-37.0); MEAN PLATELET VOLUME 9.1 fl (7.4-10.4); MONO # 0.6 (0.1-0.6); MONO % 8.8 % (1.7-9.3); PLATELET COUNT 394 K/mm3 (130-400); REDCELL DISTRIBUTION WIDTH-CV 13.1 % (11.5-14.5)
[2021-02-06 07:05] LABS: HEMATOCRIT 24.5 % (37.0-47.0); HEMOGLOBIN 8.2 g/dl (12.5-16.0); MEAN CORPUSCULAR HEMOGLOBIN 29 pg (27.0-31.0)
[2021-02-06 07:45] VITALS: BP 142/115; PULSE 96; TEMP 98.8
[2021-02-06 08:10] VITALS: BP 141/46
[2021-02-06 10:33] LABS: ALBUMIN 3.1 gm/dL (3.5-5.0); BILIRUBIN,DIRECT 0.1 mg/dL (0.0-0.4); BILIRUBIN,TOTAL 0.2 mg/dL (0.0-1.0)
[2021-02-06 11:21] VITALS: BP 155/72; PULSE 96; TEMP 98.5
--- NOTE | 2021-02-06 11:32 | NUR ---
Patient has been relaxing all day. Before admistering morning medications, this RN walked in on the patient attempting to get herself dressed in clothes that her mother had brought her. The patient stated, "I feel like I need to look more presentable instead of like a slob". The clothes were too tight and interfered with access to the patient's PICC in her left upper arm. It was explained to the patient that it would be easier for her to wear the gown for now and that if her mother brought her some t-shirts, then that would be a good choice.
--- NOTE | 2021-02-06 15:00 | NUR ---
Fabienne, [facility] Director staffed with this Outsole Rounder, authorization still pending for post acute rehab.
--- NOTE | 2021-02-06 15:24 | NUR ---
Digital Content Marketing Manager spoke with Fabienne, IPR Director who advised insurance has approved. Fabienne is working to see how soon they can admit.
[2021-02-06] MEDS ORDERED: MONODOX100 PO (15:44)
[2021-02-06] MEDS ORDERED: ZOVIRAX INJ V1000 MG IV (15:45)
[2021-02-06] MEDS ORDERED: MELATIN 3 MG-11 TAB PO (15:45)
[2021-02-06] MEDS ORDERED: LEVEMIR100 U/ML SQ (15:46)
[2021-02-06] MEDS ORDERED: ZOFRAN ODT4 MG PO (15:47)
[2021-02-06] MEDS ORDERED: NOVOLOG 100U100 U/M1 SQ (15:47)
[2021-02-06] MEDS ORDERED: NOVLOG SQ (15:47)
[2021-02-06] MEDS ORDERED: CILOXAN 5 ML5 ML OP (15:48)
[2021-02-06] MEDS ORDERED: AL-MAG HYDROX-S30 ML PO (15:48)
[2021-02-06] MEDS ORDERED: BD POSIFLUSH SF10 ML IV ×2 (15:49)
[2021-02-06] MEDS ORDERED: ELIQUIS 5MG PO (15:50)
[2021-02-06 16:06] VITALS: BP 155/72; PULSE 96; TEMP 98.5
[2021-02-06 16:20] VITALS: BP 132/45; PULSE 91; TEMP 98.6
--- NOTE | 2021-02-06 18:22 | NUR ---
Patient has done well today. PT helped her get up from her bed and into the recliner. The patient sat there for a couple of hours and seemed to enjoy it. The patient did not have any complaints today. Family is currently in the room visiting with her.
--- NOTE | 2021-02-07 11:46 | NUR ---
(late entry 02/06)The patient's insurance accepted. The patient discharged to [facility] for post acute rehab on 02/06. No other needs.
== END 2021-02-06 18:24 | DRG 641 ==
LOC: MEDICAL 16:40
PROVIDERS: Physician Assistant
DX: R62.7 Adult failure to thrive (principal); B02.30 Zoster ocular disease, unspecified; T82.868A Thrombosis due to vascular prosthetic devices, implants and grafts, initial encounter; I82.612 Acute embolism and thrombosis of superficial veins of left upper extremity; E10.65 Type 1 diabetes mellitus with hyperglycemia; I10 Essential (primary) hypertension; D64.9 Anemia, unspecified; E78.5 Hyperlipidemia, unspecified; M06.9 Rheumatoid arthritis, unspecified; E03.9 Hypothyroidism, unspecified; J45.909 Unspecified asthma, uncomplicated; E10.649 Type 1 diabetes mellitus with hypoglycemia without coma; K21.9 Gastro-esophageal reflux disease without esophagitis; F25.9 Schizoaffective disorder, unspecified; Z88.2 Allergy status to sulfonamides; Z88.0 Allergy status to penicillin; Z88.1 Allergy status to other antibiotic agents; Z88.6 Allergy status to analgesic agent; Z91.041 Radiographic dye allergy status; Z91.040 Latex allergy status; Z68.27 Body mass index [BMI] 27.0-27.9, adult
CPT/HCPCS: 99222-AI; 99232-AI; 99233-AI; 99239; J0133; J1200; J1644; J1815; J2930; Q9967

== ENCOUNTER 2021-02-06 15:38 | Inpatient (IN) | payer MEDICAID ==
[~2021-02-06] VITALS: Ht 144.8 cm; Wt 63.0 kg
[2021-02-06] MEDS ORDERED: MONODOX100 PO (15:44)
[2021-02-06] MEDS ORDERED: MELATIN 3 MG-11 TAB PO (15:45)
[2021-02-06] MEDS ORDERED: ZOVIRAX INJ V1000 MG IV (15:45)
[2021-02-06] MEDS ORDERED: LEVEMIR100 U/ML SQ (15:46)
[2021-02-06] MEDS ORDERED: NOVLOG SQ (15:47)
[2021-02-06] MEDS ORDERED: ZOFRAN ODT4 MG PO (15:47)
[2021-02-06] MEDS ORDERED: NOVOLOG 100U100 U/M1 SQ (15:47)
[2021-02-06] MEDS ORDERED: CILOXAN 5 ML5 ML OP (15:48)
[2021-02-06] MEDS ORDERED: AL-MAG HYDROX-S30 ML PO (15:48)
[2021-02-06] MEDS ORDERED: BD POSIFLUSH SF10 ML IV ×2 (15:49)
[2021-02-06] MEDS ORDERED: ELIQUIS 5MG PO (15:50)
--- NOTE | 2021-02-07 00:23 | NUR ---
Mrs Lux is doing great. Her son was beside concern about what she has been taking for constipation, which i explained to him. Vss.Will continue to monitor.
[2021-02-07 01:20] VITALS: BP 136/48; PULSE 95; TEMP 98.2
[2021-02-07 04:13] VITALS: BP 148/59; PULSE 92; TEMP 98.2
[2021-02-07 07:50] VITALS: BP 158/62; BP 175/66; PULSE 94; TEMP 98
--- NOTE | 2021-02-07 11:13 | NUR ---
SW met with the patient to complete intake, as the patient is new to [facility]. The patient lives in [place] with her son, Reuben (ph#[phone]). Her mother, Ambreen Og, also lives a few blocks away from them. She reports needing some assistance with ADLs before coming to the hospital. She states that Reuben was helping her. The patient states that she does not have any DME, but that her step-father has a cane and walker that she can borrow. Her PCP is Dr. Ashleigh Martinez and she receives her medications from [facility] in [place]. She reports no difficulties obtaining her meds now that she has state insurance. The patient believes that she has a DPOA-HC completed and that she designated Reuben. She states she believes that Reuben has a copy of the document. The patient is and states that she has two children: Reuben and Rina. Rina lives in [place]. The patient had no concerns for SW at this time. SW to continue to follow.
--- NOTE | 2021-02-07 13:00 | NUR ---
Report received from ADOLPH Beatty. PT in bed resitng, denies needs, will continue to monitor.
--- NOTE | 2021-02-07 16:14 | NUR ---
SHAUNA contacted the patient's son, Reuben, to review the IPR Team Conference Note. SHAUNA informed Reuben of the team's recommedation for a d/c next Friday, 02/13, with outpatient PT/OT. Reuben was agreeable to the plan. He states that they would probably prefer to do the outpatient therapy at [facility]. A patient/family meeting was scheduled for tomorrow at 1315. SHAUNA notified IPR Director of the time. SW attempted to meet with the patient to review the above. The patient was sound asleep. SHAUNA placed the IPR Team Conference Note in the patient's room.
--- NOTE | 2021-02-07 18:48 | NUR ---
RECEIVED CHANGE OF SHIFT REPORT FROM DAY SHIFT NURSE.
--- NOTE | 2021-02-07 18:51 | NUR ---
Pt doing well, sitting in chair at side of bed resting and eating supper. Family at bedside most of day, disucssed plan to transfer to room 340 after supper, pt agreeable. Belongings brought down to room 340. Pt finishing supper and then will move. Report called to IPR nurse who will resume care.
--- NOTE | 2021-02-07 19:30 | NUR ---
OBSERVED PATIENT BROUGHT OVER VIA W/C WITH FAMILY MEMBER PRESENT, FROM MEDICAL UNIT WITH PCT PRESENT. PATIENT PUT TO BED.
[2021-02-07 20:47] VITALS: BP 115/59; PULSE 99; TEMP 98.1
--- NOTE | 2021-02-07 21:20 | NUR ---
LAB CALLED CRITICAL GLUCOSE, SEE [facility].
--- NOTE | 2021-02-07 23:18 | NUR ---
PATIENT YELLING, STATING HER LEFT SIDE OF HER SKULL HAD SHARP UNBEARABLE PAIN "THE WORST PAIN I'VE EVERY HAD" THEN PAIN SUBSIDED SHORTLY AFTER STAFF ENTERED ROOM. AGREED TO HAVE HEATING PAD TO HEAD FOR COMFORT AT THIS TIME. SPEECH CLEAR/APPROPRIATE AND DENIES ANY VISUAL CHANGES OR DIZZINESS AT THIS TIME.
--- NOTE | 2021-02-07 23:23 | NUR ---
UP WITH GAITBELT, ASST X1 STAFF AMB FROM W/C TO BATHROOM AND BACK TO W/C WHEN SITTING UP IN CHAIR AND FROM W/C TO BED.
--- NOTE | 2021-02-08 00:51 | NUR ---
INFORMED OF FSBS RESULT OF 307 WITH NO OTHER ORDERS ENTERED AT TIME OF CALL. SEE MAR FOR INSULIN GIVEN.
--- NOTE | 2021-02-08 04:46 | NUR ---
RECHECKED FSBS, 63, CONTINUED TO TREAT LOW BLOOD SUGAR WITH 120 ML REGULAR SPRITE, EATING ENRIQUE CRX. DENIES NAUSEA AT THIS, WAS INITALLY DIZZY WHEN GETTING UP TO BATHROOM AFTER DRINKING 240 ML APPLEJUICE WITH 2 PACKETS OF SUGAR FOR FSBS OF 43. RESTING IN BED WHILE DRINKING SODA.
[2021-02-08 05:00] VITALS: BP 169/53; PULSE 86; TEMP 98.1
--- NOTE | 2021-02-08 05:26 | NUR ---
INITIATED HYPOGLYCEMIC PROTOCOL, PATIENT TOOK FEW SIPS OF GLUCOGEL, REFUSED TO TAKE TUBE (15 GM) OF GLUCOSE PER PROTOCOL STATING SHE DID NOT WANT HER FSBS RESULTS TO "GO THE OTHER WAY" INDICATING RESULTS WOULD BE HIGH EARLIER.
--- NOTE | 2021-02-08 05:31 | NUR ---
INFORMED ONCALL PROVIDER PATIENT'S CURRENT STATUS/FSBS RESULTS AND SUBSEQUENT TREATMENT/INITIATING HYPOGLYCEMIC PROTOCOL, (JUICE 240 ML, 1 PACKET ENRIQUE CRX, 120 ML REGULAR SPRITE) NO ADDITIONAL ORDERS ENTERED BY PROVIDER AT TIME OF CALL.
--- NOTE | 2021-02-08 06:30 | NUR ---
Report received from ADOLPH Moore. Patient is sleeping in bed and easily aroused but does not stay awake. Patient will answer questions but falls asleep in between. Patient denies pain at this time. Patient stated she was feeling nausea from her sugar fluctuating and that she was feeling tired. Bedside table and call light are within reach. Will continue to monitor patient throughout shift.
--- NOTE | 2021-02-08 07:06 | NUR ---
CHANGE OF SHIFT REPORT GIVEN TO DAY SHIFT NURSE, ALEKSANDRA FARFAN.
--- NOTE | 2021-02-08 14:27 | NUR ---
SHAUNA attended the patient family meeting. The patient's son, Reuben, was at bedside. Also present was IPR Director, PT, OT, and ST. IPR Director started by explaining the purpose of the meeting. PT/OT/ST then discussed the patient's progress so far and how a d/c date has been set for next Friday, 02/13, with outpatient PT/OT/ST. The patient and her son were agreeable to the plan. Reuben expressed some concerns with the patient's memory. The team answered and addressed all questions. Reuben was interested in receiving some information on life alerts and mental health resources. Reuben reports that the patient currently goes to [facility], but he is not impressed by them. SW provided Reuben with brochures to different life alerts and a list of [facility] mental health resources. Reuben reports that they would be interested in getting the outpatient therapy set up at [facility]. If they cannot do the therapy, then they would prefer [facility]. Monserrat was also interested in seeing if the patient would qualify for Medicare. SHAUNA consulted financial counselor, Molly. SHAUNA contacted Lise Lezama at [facility] therapy department and scheduled the patient an outpatient OT appointment on 02/21 at 1300 and PT on 02/21 at 1400. Lise Lezama reports that she is unable to scheduled ST and will have their ST contact the patient's son or SW back to set up that appointment. SHAUNA notified the patient's RN of the appointments. SHAUNA will need to fax the patient's orders to [phone].
[2021-02-08 16:58] VITALS: BP 167/78; PULSE 94; TEMP 99.1
--- NOTE | 2021-02-08 18:00 | NUR ---
Patient had episodes of hypo/hypergylcemic early this morning so held scheduled insulin at 1600 and gave 1700 sliding scale (6 units) instead. Patient was unable to eat both at breakfast and lunch so educated the patient about the importance of eating prior to taking insulin to avoid another episode. Son assisted mother with eating dinner and she ate 80% of meal. Will continue to monitor patient throughout shiftl.
--- NOTE | 2021-02-08 19:22 | NUR ---
Gave shift report to Maci FARFAN. Patient is sitting on side of bed with son. Call light and bedside table are within reach.
--- NOTE | 2021-02-08 21:00 | NUR ---
PT RESITNG IN BED. HAD TO WAKE FOR HS PILLS. KPAD USED PRN FOR LT SHOULDER PAIN. LIMITED ROM TO LUE D/T RA. RUE MOVES ALITTLE EASIER BUT STILL LIMITED. DENIES NAUSEA. TAKES PILLS ONE AT A TIME. KEPT HOB ELEVATED AFTER PILLS. ACCUCHECK 324. SEE MAR FOR 10UNITS SSI GIVEN. GAVE HS SNACK. CALL LIGHT IN REACH. BED ALARM SET.
[2021-02-09 04:39] VITALS: BP 177/59; PULSE 94; TEMP 98.3
[2021-02-09 07:02] LABS: BASO % 0.5 % (0.0-2.0); EOS # 0.3 (0.0-0.7); GRAN # 3.9 (1.4-6.5); GRAN % 61.3 % (42.2-75.2); LYMPH # 1.4 (1.2-3.4); LYMPH % 22.2 % (20.0-51.0); MEAN CELL VOLUME 89 fl (80.0-100.0); MEAN CORPUSCULAR HGB CONC 33 g/dl (33.0-37.0); MEAN PLATELET VOLUME 9.1 fl (7.4-10.4); MONO # 0.7 (0.1-0.6); MONO % 11.7 % (1.7-9.3); PLATELET COUNT 399 K/mm3 (130-400); RED BLOOD COUNT 2.81 M/mm3 (4.10-5.30)
[2021-02-09 07:11] LABS: HEMOGLOBIN 8.2 g/dl (12.5-16.0); MEAN CORPUSCULAR HEMOGLOBIN 29 pg (27.0-31.0)
[2021-02-09 07:16] LABS: ALBUMIN 3.1 gm/dL (3.5-5.0); BILIRUBIN,TOTAL 0.2 mg/dL (0.0-1.0); CALCIUM 8.8 mg/dL (8.4-10.2); CREATININE, serum 0.6 (0.52-1.25); MAGNESIUM 1.1 mg/dL (1.6-2.3); TOTAL PROTEIN 6.1 gm/dL (6.4-8.2)
--- NOTE | 2021-02-09 09:45 | NUR ---
Decreased swelling in patient's left hand. left forearm remains swollen.
--- NOTE | 2021-02-09 13:50 | NUR ---
Admission QIM scores were reviewed by the team. Code of 5 chosen for eating was determined by team discussion to be the most usual performance for this patient during the assessment period. Code of 4 chosen for toilet hygiene was determined by team discussion to be the most usual performance for this patient during the assessment period. Code of 4 chosen for rolling left to right was determined by team discussion to be the most usual performance before interventions for this patient during the assessment period. Code of 4 chosen for sit to lying was determined by team discussion to be the most usual performance for this patient during the assessment period. Code of 4 chosen for lying to sitting on side of bed was determined by team discussion to be the most usual performance for this patient during the assessment period.--Fabienne Iraheta,
--- NOTE | 2021-02-09 15:28 | NUR ---
IPR Director notified SW that the patient's mother would like an update from us. The patient's mother, Ambreen, arrived to the hospital. SHAUNA and IPR Director, Fabienne, met with the patient and her mother. IPR Director updated the patient's mother on the d/c plan for next Friday with outpatient PT/OT and informed her how the patient has been doing. Ambreen reports that the patient's son would like for the patient to come and stay with her at nights for awhile, due to his work schedule. Ambreen also inquired about whether insurance would pay for a shower seat and bedside commode. IPR Director and SW answered all questions. SHAUNA contacted Bhavesh at [facility]. Bhavesh reports that Medicaid does cover for a bedside commode and shower seat. SHAUNA updated the patient's mother, Ambreen. Ambreen would like to go ahead and get the equipment from [facility]. Ambreen then inquired about a hospital bed. SW informed her how a hospital bed would be private pay. Ambreen verbalized understanding and would like to look into getting one and delivered to her address. SHAUNA contacted Zonia at [facility] and updated her on the above. Zonia reports that Medicaid will only cover for a bedside commode, not the shower seat. Zonia reports that they have full electric hospital beds and they are $236.25 a month to rent. Zonia reports that they would be able to deliver the equipment to the patient's home on Friday. SHAUNA updated the patient's mother, Ambreen. Ambreen would like to go ahead with getting the hospital bed delivered to her home and get the bedside commode from [facility]. SHAUNA notified and faxed and emailed the script to Zonia at [facility].
[2021-02-09 17:00] VITALS: BP 143/53; PULSE 88; TEMP 97.7
--- NOTE | 2021-02-09 21:18 | NUR ---
PT SITTING IN RECLINER. WATCHING TV. PT RELATES LT EYE ITCHES AND MUNOZ. COOL CLOTH PROVIDED. ENC PT NOT TO RUB EYE. HAS TANNISH DRY EXUDATE NOTED. PT TAKES PILLS ONE AT AT TIME WITH SOME DIFFICULTY. HAD PRETTY SEVERE TREMORS OF BILAT HANDS. DIFFICULT TO HANG ONTO ITEMS. CALL LIGHT IN REACH. CHAIR ALARM SET.
[2021-02-10 05:07] VITALS: BP 158/58; PULSE 88; TEMP 97.7
--- NOTE | 2021-02-10 13:03 | NUR ---
FSBS:69mg/dL sitting up in recliner about to eat lunch - asymptomatic - pt requested "apple juice and I'll eat my lunch here and I'll be fine"
[2021-02-10 16:10] VITALS: BP 209/81; PULSE 105; TEMP 98
[2021-02-10 18:56] VITALS: BP 181/74
--- NOTE | 2021-02-10 18:56 | NUR ---
Rechecked BP at this time. 181/74. Sitting up in w/c eating dinner. Mod i in room. Enc pt to call staff for needs. call light in reach.
[2021-02-11 04:47] VITALS: BP 132/92; BP 190/79; PULSE 90; TEMP 98.3
--- NOTE | 2021-02-11 06:57 | NUR ---
shift report received from ADOLPH Lujan
--- NOTE | 2021-02-11 07:21 | NUR ---
sitting up on side of bed eating breakfast
--- NOTE | 2021-02-11 07:30 | NUR ---
remains sitting up on side of bed, had breakfast and tolerated well, does say she is haviang some nausea but this is normal for her of a morning, full assessment completed, see interventions for further info, will try to rest
--- NOTE | 2021-02-11 09:48 | NUR ---
appears to be sleeping, in bed with lights off, eyes closed, resp quiet and easy
--- NOTE | 2021-02-11 12:06 | NUR ---
assisted to sitting up on side of bed to have lunch
--- NOTE | 2021-02-11 13:45 | NUR ---
sitting up on side of bed finishing lunch
[2021-02-11 15:26] VITALS: BP 144/44; PULSE 99; TEMP 98.2
--- NOTE | 2021-02-11 16:06 | NUR ---
appears to be dozing, awakens easily, denies needs
--- NOTE | 2021-02-11 16:57 | NUR ---
awake and assited up and finished getting dressed for when her daughter is here and for supper, up to chair
--- NOTE | 2021-02-11 17:45 | NUR ---
sitting up in chair eating supper, mother at bedside
--- NOTE | 2021-02-11 18:36 | NUR ---
shift report given to ADOLPH Lujan
--- NOTE | 2021-02-11 19:45 | NUR ---
PT HAVING COUGHING SPELL WITH EXP WHEEZE. NOTIFIED RT FOR SVN TX NEEDED. SITTING ON SIDE OF BED.
--- NOTE | 2021-02-12 01:15 | NUR ---
PT AWAKE. SITTING ON SIDE OF BED UNTANGLING CORDS. ALITTLE CONFUSED. TALKING ABOUT CHECKERED CATS. ASSISTED TO BR. CHANGED INCONT BRIEF WITH ASSIST. CHANGING TO PJS BUT NEEDED MOD ASSIST. PT CONTINUES WITH ALITTLE CONFUSION. CHECKED BLOOD SUGAR- 65. PROVIDED OJ AND GR CRACKERS. WILL RECHECK BLOOD SUGAR TO ENSURE INCREASED LEVEL. PT SITTING ON SIDE OF BED EATING AND DRINKING.
[2021-02-12 04:24] VITALS: BP 150/55; PULSE 101; TEMP 97.6
--- NOTE | 2021-02-12 06:20 | NUR ---
PT FORGETFUL THIS AM. WALKING IN WRIGHT INDEPENDENTLY TO EXIT DOOR. PT REORIENTED. RETURNED BACK TO ROOM. LAB HERE FOR BLOOD. PT TO BED. PLACED BED ALARM ON AT HIS TIME FOR PT SAFETY.
[2021-02-12 06:57] LABS: CALCIUM 9.1 mg/dL (8.4-10.2); CREATININE, serum 0.61 (0.52-1.25); POTASSIUM 4.9 mmol/L (3.4-5.0)
--- NOTE | 2021-02-12 09:46 | NUR ---
Received report from ADOLPH Lujan. Patient is sleeping in bed. Call light and bedside table are within reach. Will continue to monitor patient throughout shift.
--- NOTE | 2021-02-12 10:00 | NUR ---
Patient is A & O x 2. Patient has intermittent confustion. This nurse asked the patient what she had to eat last night and she stated "blue jeans and I don't know what else." Patient admitted she was trying to leave last night but did not know where she was going. Patient is currently IMOD but this nurse is going to request reevaluation. Bed alarm in on at this time for safety of the patient. Call light and bedside table are within reach. Will continue to monitor patient throughout shift.
--- NOTE | 2021-02-12 10:54 | NUR ---
SHAUNA contacted Norma, at [facility], to follow up about the ST appointment. Norma reports that she did talk to their ST and ST told her to put the patient down for the same day as her PT/OT appointments, 02/21. She reports that she will be contacting the patient's son, Reuben, today to see if 1200 or 1500 would work for the ST appointment on that day. SHAUNA then contacted and updated the patient's son, Reuben, on the above and reviewed the d/c plan for tomorrow. Reuben verbalized understanding and was in agreement to the plan. Reuben asked for [facility]'s phone number. SHAUNA provided their number to Reuben. He had no other questions for SHAUNA at this time. SHAUNA contacted Zonia at [facility] to follow up about the hospital bed and bedside commode. Zonia reports that she has spoken to the patient's mother, Ambreen, but has not received payment for the equipment yet. Zonia reports that they have to receive payment before they deliver the equipment to Ambreen's home. Zonia reports that Ambreen told her she needed to talk to Reuben first. SHAUNA provided Zonia with Reuben's phone number.
--- NOTE | 2021-02-12 12:03 | NUR ---
LEFT MESSAGE FOR AIVS FOR PICC LINE DC PER , SEE ORDERS.
--- NOTE | 2021-02-12 15:30 | NUR ---
NO AIVS AVAILABLE TODAY. DISCUSSED PICC DC ORDER WITH CHARGE NURSE & AREA MECHANIC DUE TO KNOWN DVT IN PICC LINE. AIVS TO PULL PICC LINE TOMORROW. NOTIFIED
[2021-02-12 17:52] VITALS: BP 149/67; PULSE 98; TEMP 97.9
--- NOTE | 2021-02-12 18:54 | NUR ---
Report given to ADOLPH Walton. Patient is sitting in recliner eating and visiting with family. Call light and bedside table are within reach.
--- NOTE | 2021-02-12 19:11 | NUR ---
FSBS CHECKED PER PATIENT'S MOTHER REQUEST, RESULTING IN 87 BLOOD SUGAR LEVEL.
--- NOTE | 2021-02-12 19:13 | NUR ---
RECEIVED CHANGE OF SHIFT REPORT FROM DAY SHIFT NURSE. PATIENT UP IN CHAIR EATING SUPPER DURING REPORT. FAMILY IN ROOM DURING REPORT.
[2021-02-13 04:17] VITALS: BP 150/61; PULSE 82; TEMP 98
--- NOTE | 2021-02-13 06:45 | NUR ---
CHANGE OF SHIFT REPORT GIVEN TO DAY SHIFT NURSE, ALEKSANDRA RN AND RODRIGO RN. BED ALARM ON.
[2021-02-13] MEDS ORDERED: ELIQUIS 5MG PO (09:53)
[2021-02-13] MEDS ORDERED: BACITRACIN TOPIC1 TU TOP (09:55)
[2021-02-13] MEDS ORDERED: COZAAR 25MG25 MG/TAB PO (09:59)
[2021-02-13] MEDS ORDERED: TRESIBA100 UNIT/1 SQ (10:08)
--- NOTE | 2021-02-13 10:33 | NUR ---
Patient's PICC lined removed. ADOLPH Vera instructed patient on care of arm after removal.
--- NOTE | 2021-02-13 10:37 | NUR ---
The patient's son, Reuben, left a voicemail for SHAUNA inquiring about a business case analyst through the patient's Medicaid. He reports that he contacted the phone number on the back of the patient's insurance card, but they could not route him to her business case analyst. SHAUNA staffed with IPR Director and obtained a phone number to Princess, an health insurance specialist through the patient's Medicaid. SHAUNA contacted Reuben and provided him with her phone number. Reuben reports that the hospital bed has been delivered. He also inquired about assistance with Medicare. SHAUNA informed him of [facility]. He had no other questions or concerns for d/c today. The patient is to discharge back home with her son and mother today, 02/13, with outpatient PT/OT/ST at [facility]. SHAUNA faxed the patient's d/c orders to [facility] Therapy Department. No additional needs at this time.
--- NOTE | 2021-02-13 11:45 | NUR ---
mother and son here at bedside, assited up to bathroom and dressed by MARINE EQUIPMENT TEST ENGINEER and then into chair for lunch
--- NOTE | 2021-02-13 12:15 | NUR ---
mother and son asking about what time the family meeting would be, explained to them there wasn't a plan for a family meeting that the Dr had been in and had written discharge orders, the mother stated "well that isn't going to happen", spoke with them and explained that therapy and medical team felt she was ready, the mother and son have concerns with her mental abilities and that she is worse than when she came in and they are not comfortable taking her home, notified Viji with rn social work and she was here to talk with them, explained to them the only option is to have her go to LTC facility, Viji will send out referrals
--- NOTE | 2021-02-13 14:11 | NUR ---
up to bathroom with assistance and CCUA obtained
[2021-02-13 14:22] LABS: COLLECTION METHOD CATHETER
[2021-02-13 14:32] LABS: MUCOUS Present /lpf; PH 7 (5-8); SQUAMOUS EPITHELIAL 0-2 /hpf; URINE APPEARANCE Clear; URINE BACTERIA None Seen /hpf; URINE BILIRUBIN Negative (NEGATIVE); URINE BLOOD Negative (NEGATIVE); URINE COLOR Yellow; URINE GLUCOSE 2+ (NEGATIVE); URINE KETONE Negative (NEGATIVE); URINE LEUKOCYTE ESTERASE Negative (NEGATIVE); URINE NITRATE Negative (NEGATIVE); URINE PROTEIN(semi-quant) Negative (NEGATIVE); URINE RBC 0-2 /hpf; URINE UROBILINOGEN Negative (NEGATIVE)
[2021-02-13 15:11] VITALS: BP 173/68; PULSE 92; TEMP 98.2
--- NOTE | 2021-02-13 17:09 | NUR ---
ADOLPH Gutierreztrade recruiter, with the patient's PCP contacted SHAUNA. Brenda reports that the patient's son, eRuben, reached out to her this morning. She states that he was distraught and does not feel like him or his grandmother can take care of the patient at home. SHAUNA met with Reuben and Ambreen. Reuben and Ambreen confirmed the above. Ambreen reports that the patient is doing better physically, but not mentally. They do not feel like the patient would be safe at home alone and would like to refuse to take her home today. SHAUNA informed them that the next option would be looking into a long-term care facility, due to the patient's insurance, which is Medicaid. Reuben and Ambreen verbalized understanding. Ambreen reports that they would prefer [facility]. SHAUNA informed them that referrals would need to be sent to multiple facilities, in the event that [facility] cannot take. Reuben and Ambreen were agreeable for SW to send multiple referrals. SHAUNA updated IPR Director. SHAUNA contacted and faxed referrals to [facility], [facility] in [facility], [facility], [place], and [facility]. [facility] declined the patient. [facility] declined the patient. Jenny, at [facility], reports that they can accept the patient as long as she has an accepting provider to follow her at the facility and to be available after hours for any calls. SHAUNA notified ADOLPH Gutierreztrade recruiter, with Dr. Martinez. Brenda reports that Dr. Martinez will follow the patient and they do have a provider guard immigration after hours. SHAUNA updated Jenny at [facility]. Jenny reports that they can accept the patient tomorrow and can provide transportation. A transport time was tentatively scheduled at 1300. Jenny reports that the patient will have a semi-private room, due to her insurance. Jenny reports that they will require a CARE Assessment. SHAUNA met with the patient, Reuben, and Ambreen and updated them on the above. The patient's family is in agreement with the patient going to [facility] for long-term care tomorrow. Reuben provided SHAUNA with a copy of the patient's DPOA-HC. The patient's DPOA-HC is her sister, Sarah. The alternate is Reuben. Ambreen reports that Sarah lives in [place] is not always available. SHAUNA placed the document in the patient's chart. SHAUNA updated the hospitalist, IPR Director, and RN on the above. SW to complete the CARE Assessment tomorrow.
--- NOTE | 2021-02-13 18:49 | NUR ---
Report given to ADOLPH Walton. Patient is sitting on side of bed eating. Call light and bedside table are within reach.
--- NOTE | 2021-02-13 18:50 | NUR ---
RECEIVED CHANGE OF SHIFT REPORT FROM DAY SHIFT NURSE. BED ALARM ON WHEN IN BED.
--- NOTE | 2021-02-14 00:48 | NUR ---
PATIENT FOUND WANDERING OUT INTO [place], WHEN ASKED WHERE SHE WAS GOING, PATIENT REPLIED "I DON'T KNOW" DENIED ANY NEEDS, DENIED URGE TO VOID. PATIENT ABLE TO WALK BACK TO BED ACCOMPANIED BY STAFF, GOT BACK INTO BED WITH NO ASSISTANCE. BED ALARM ON TURNED ON FOR SAFETY.
--- NOTE | 2021-02-14 02:29 | NUR ---
PATIENT SLEEPING, DOES NOT WAKE WHEN ROOM ENTERED BY STAFF. BREATHING NONLABORED AND EVEN. BED ALARM ON FOR SAFETY DURING SLEEPING. CALL LIGHT WITHIN REACH.
[2021-02-14 05:07] VITALS: BP 162/69; PULSE 94; TEMP 98
--- NOTE | 2021-02-14 07:00 | NUR ---
Patient is drowsy this morning. Attempted to wake her up to eat her breakfast, she said not now. When walking into the room the patient had a tourniquet on to her right forearm from lab. Removed it right away. Not sure how long it was on there. Her hand was red and slightly puffy. The area where the tourniquet was, is red, no open areas and no irritation noted. When patient is more alert and ready to eat will give her morning medications. No other changes at this time. Call light within reach.
--- NOTE | 2021-02-14 07:07 | NUR ---
CHANGE OF SHIFT REPORT GIVEN TO DAY SHIFT NURSE, THI FARFAN. BED ALARM ON FOR SAFETY. ANTICIPATE PATIENT TO BE DISCHARGED TO LTC TODAY.
[2021-02-14] MEDS ORDERED: NOVLOG SQ (08:33)
--- NOTE | 2021-02-14 11:08 | NUR ---
SHAUNA completed the CARE Assessment with the patient. The patient signed the forms. SHAUNA faxed the CARE Assessment to [facility] and [facility]. SW placed the completed assessment in the patient's chart. Jenny, at [facility], contacted SHAUNA and reports that since the patient is not vaccinated for COVID, she would have to be in isolation for 14 days. Family can visit, but visits are limited to the patient's room and if family is not vaccinated, they have to get tested before coming to visit. SHAUNA updated the patient's son, Reuben, on this. The patient is to discharge today, 02/14, to [facility] for long-term care. Transportation was scheduled at 1300, via [facility]. SHAUNA informed the patient, her RN, and the patient's son (Reuben) of the time. They were all agreeable to the time. No additional needs at this time.
[2021-02-14 12:17] VITALS: BP 162/69; PULSE 94; TEMP 98
--- NOTE | 2021-02-14 12:55 | NUR ---
Martha, at [facility], contacted SHAUNA. Martha had received a call from the hospital to schedule an appointment with them. SHAUNA secured the patient and appointment at [facility] on 02/20 at 1100. SHAUNA notified the patient's RN of the appointment.
--- NOTE | 2021-02-14 13:20 | NUR ---
Patient is discharging to [facility] in [place]. Report called to admitting nurse. Discharge packet sent with patients ride. All belongings packed up and sent with her. Her family is aware she is discharging. Made all of her follow up appointments except optomology, they wanted a referral from the primary care doctor. Notified Dr Maday Martinez's office of referral. No other changes at this time.
--- NOTE | 2021-02-15 13:39 | NUR ---
Discharge QIM scores were reviewed by the team. Code of 6 chosen for toilet hygiene was determined by team discussion to be the most usual performance for this patient during the assessment period. Code of 6 chosen for toileting transfers was determined by team discussion to be the most usual performance for this patient during the assessment period. Code of 4 chosen for upper body dressing was determined by team discussion to be the most usual performance for this patient during the assessment period. Code of 4 chosen for lower body dressing was determined by team discussion to be the most usual performance for this patient during the assessment period. Code of 3 chosen for putting on/taking off footwear was determined by team discussion to be the most usual performance for this patient during the assessment period.--Fabienne Iraheta, PD
== END 2021-02-14 13:20 | DRG 948 ==
LOC: MEDICAL 18:28
PROVIDERS: Physician Assistant; ADMIT Internal Medicine
DX: R53.81 Other malaise (principal); B02.30 Zoster ocular disease, unspecified; I82.819 Embolism and thrombosis of superficial veins of unspecified lower extremity; E87.1 Hypo-osmolality and hyponatremia; G72.9 Myopathy, unspecified; E11.649 Type 2 diabetes mellitus with hypoglycemia without coma; E11.65 Type 2 diabetes mellitus with hyperglycemia; D63.1 Anemia in chronic kidney disease; E03.9 Hypothyroidism, unspecified; I10 Essential (primary) hypertension; K21.9 Gastro-esophageal reflux disease without esophagitis; M06.9 Rheumatoid arthritis, unspecified; J45.909 Unspecified asthma, uncomplicated; K59.00 Constipation, unspecified; F25.9 Schizoaffective disorder, unspecified; E78.5 Hyperlipidemia, unspecified; E66.9 Obesity, unspecified; Z79.4 Long term (current) use of insulin; Z79.01 Long term (current) use of anticoagulants; Z88.2 Allergy status to sulfonamides; Z88.0 Allergy status to penicillin; Z88.6 Allergy status to analgesic agent
CPT/HCPCS: 99222-AI; 99231-AI; 99232-AI; 99233-AI; 99239; J0133; J1815